=== PATIENT | female | born 1990 | race American Indian/Alaskan Native ===

== ENCOUNTER 2017-05-16 12:14 | Emergency (ER) | payer MEDICAID ==
--- NOTE | 2017-05-16 21:28 | Emergency Department Report ---
Upper Respiratory HPI - HPI Chief Complaint: Upper Respiratory Infection Stated Complaint: FLU LIKE SYMPTOMS Time Seen by Provider: 05/16/17 21:08 Duration: 2 Days URI Symptoms: Rhinorrhea: Yes, Sore Throat: Yes, Ear Pain: Yes, Cough: Yes, Shortness of Breath: No, Sick Contacts: Yes, Unable to Take Fluids: No, Urine Output Abnormal: No, Listless Behavior: No - Home Meds and Allergies Home Medications: Previous Rx's Medication Instructions Recorded Last Taken Type Azithromycin [Zithromax Z-MANAN] 250 mg PO DAILY #6 tab 05/16/17 Unknown Rx Codeine Phosphate/Guaifenesin 5 ml PO TID PRN #120 ml 05/16/17 Unknown Rx [Guaifenesin-Codeine Syrup] Ibuprofen 800 mg PO TID PRN #30 tablet 05/16/17 Unknown Rx predniSONE [Deltasone] 40 mg PO QDAY #10 tab 05/16/17 Unknown Rx Allergies/Adverse Reactions: Allergies Allergy/AdvReac Type Severity Reaction Status Date / Time latex Allergy Rash Verified 05/16/17 13:12 ED Review of Systems ROS: Stated complaint: FLU LIKE SYMPTOMS Other details as noted in HPI Constitutional: chills, fever ENT: ear pain, throat pain, congestion Respiratory: cough, wheezing Cardiovascular: denies: chest pain, palpitations Endocrine: no symptoms reported Gastrointestinal: denies: abdominal pain, nausea, diarrhea Genitourinary: denies: urgency, dysuria, discharge Musculoskeletal: denies: back pain, joint swelling, arthralgia Skin: denies: rash, lesions Neurological: denies: headache, weakness, paresthesias Psychiatric: denies: anxiety, depression Hematological/Lymphatic: denies: easy bleeding, easy bruising ED Past Medical Hx - Past Medical History Hx Psychiatric Treatment: Yes (bipolar) Hx Asthma: Yes - Surgical History Additional Surgical History: tonsillectomy/adnoid removal 2005. tubal ligation 2016. breast reduction 01/2017 - Social History Smoking Status: Never Smoker Substance Use Type: Alcohol - Medications Home Medications: Home Medications Medication Instructions Recorded Confirmed Last Taken Type Azithromycin [Zithromax Z-MANAN] 250 mg PO DAILY #6 tab 05/16/17 Unknown Rx Codeine Phosphate/Guaifenesin 5 ml PO TID PRN #120 ml 05/16/17 Unknown Rx [Guaifenesin-Codeine Syrup] Ibuprofen 800 mg PO TID PRN #30 tablet 05/16/17 Unknown Rx predniSONE [Deltasone] 40 mg PO QDAY #10 tab 05/16/17 Unknown Rx ED Bronchiolitis Physical Exam - Exam General: Vital signs noted. No distress. Alert and acting appropriately. HEENT: Yes Pharyngeal Erythema, Yes Rhinorrhea, No Conjuctival Injection, No Dry Mucous Membranes Ear: Both TM Erythema, Neither TM Bulge, Neither EAC Discharge Neck: No Adenopathy, No Rigidity Lungs: Yes Clear Lung Sounds, Yes Good Air Exchange, Yes Cough, No Wheezes, No Stridor, No Nasal Flaring, No Retractions, No Use of Accessory Muscles Heart: Yes Regular, No Murmur Abdomen: Yes Normal Bowel Sounds, No Tenderness, No Peritoneal Signs Skin: No Rash, No Eczema Neurologic: Alert and oriented, no deficits. Musculoskeletal: Unremarkable. ED Physical Exam - General Limitations: No Limitations General appearance: alert, in no apparent distress - Head Head exam: Present: atraumatic, normocephalic - Eye Eye exam: Present: normal appearance, PERRL, EOMI Pupils: Present: normal accommodation - ENT ENT exam: Present: mucous membranes moist - Expanded ENT Exam Expanded TM/Canal exam: Erythema: Right TM, Left TM, Canal Tenderness: Right TM, Left TM Mouth exam: Absent: trismus Throat exam: Positive: tonsillar erythema. Negative: tonsillomegaly, tonsillar exudate, R peritonsillar mass, L peritonsillar mass - Neck Neck exam: Present: normal inspection, full ROM, lymphadenopathy. Absent: thyromegaly - Respiratory Respiratory exam: Present: normal lung sounds bilaterally. Absent: respiratory distress, wheezes, stridor, chest wall tenderness - Cardiovascular Cardiovascular Exam: Present: regular rate, normal rhythm, normal heart sounds. Absent: systolic murmur, diastolic murmur, rubs, gallop - GI/Abdominal GI/Abdominal exam: Present: soft, normal bowel sounds. Absent: distended, tenderness, guarding, rebound, rigid, organomegaly, mass, bruit, pulsatile mass , hernia - Rectal Rectal exam: Present: deferred - Extremities Exam Extremities exam: Present: normal inspection, full ROM, normal capillary refill - Back Exam Back exam: Present: normal inspection, full ROM. Absent: CVA tenderness (R), CVA tenderness (L) - Neurological Exam Neurological exam: Present: alert, oriented X3, normal gait, reflexes normal - Psychiatric Psychiatric exam: Present: normal affect, normal mood - Skin Skin exam: Present: warm, dry, intact, normal color. Absent: rash ED Course Vital Signs 05/16/17 13:12 Temperature 98.3 F Pulse Rate 76 Respiratory 20 Rate Blood Pressure 119/75 Blood Pressure 119/75 [Right] O2 Sat by Pulse 100 Oximetry ED Medical Decision Making - Medical Decision Making This is a 27-year-old female with a history of asthma and bronchitis patient presents with flulike symptoms cough wheezing nocturnal fever 2 days patient states temp MAXIMUM TEMPERATURE 102 patient denies shortness of breath no dizziness no lightheadedness or nausea vomiting last by mouth intake 1 hour ago patient tolerating by mouth hydration without issues exam patient appears well and nontoxic bilateral TM erythema and pain with movement nose mildly block boggy clear postnasal drip no polyps or obstruction pharynx moderate erythema no exudate no lesions patient is post-tonsillectomy there is no stridor no cervical limits also clear bilateral dystonic no wheezing plan treatment for bronchitis refill albuterol and azithromycin when necessary fever Cheratussin when necessary cough patient will follow with PCP in 2-3 days patient verbalizes understanding and agreement with discharge plan will be discharged home in stable condition at this time Critical care attestation.: If time is entered above; I have spent that time in minutes in the direct care of this critically ill patient, excluding procedure time. ED Disposition Clinical Impression: Bronchitis Disposition: DC-01 TO HOME OR SELFCARE Is pt being admited?: No Does the pt Need Aspirin: No Condition: Good Instructions: Chronic Bronchitis (ED) Prescriptions: Azithromycin [Zithromax Z-MANAN] 250 mg PO DAILY #6 tab Codeine Phosphate/Guaifenesin [Guaifenesin-Codeine Syrup] 5 ml PO TID PRN #120 ml PRN Reason: Cough Ibuprofen 800 mg PO TID PRN #30 tablet PRN Reason: pain fever predniSONE [Deltasone] 40 mg PO QDAY #10 tab Referrals: PRIMARY CARE, [Primary Care Provider] - 3-5 Days Forms: Work/School Release Form(ED) Time of Disposition: 21:31
[2017-05-17 02:23] VITALS: BP 116/79
== END 2017-05-16 21:58 | disposition home or self-care (01) ==
LOC: ED 12:14
DX: J40 Bronchitis, not specified as acute or chronic (principal); Z91.040 Latex allergy status
CPT/HCPCS: 99282

== ENCOUNTER 2017-11-10 07:25 | Emergency (ER) | payer MEDICAID ==
[2017-11-10] MEDS ORDERED: DECADRON IM ONE (09:05)
--- NOTE | 2017-11-10 09:07 | Emergency Department Report ---
ED Allergic Reaction HPI - General Chief complaint: Allergic Reaction Stated complaint: ALLERGIC REACTION Time Seen by Provider: 11/10/17 08:03 Source: patient Mode of arrival: Ambulatory Limitations: No Limitations - History of Present Illness Initial Comments: This is a 27-year-old -German female who presents with hives to bilateral upper extremity and buttock from unknown source. Patient states she woke up around 0300 this morning with periodic rash on left forearm. Patient states she took Benadryl and went back to sleep. When she woke up she noticed hives to the face and buttocks. Her son sleeps in the same bed with her and he did not have signs of rash. She checked her bed and didn't see signs of bed bug. Patient denies recent change in soaps or detergents. Patient states he could not come from food because she ate several hours prior to going to sleep. Denies difficulty swallowing, sore throat, drooling, fever, palpitations or chest pain. MD Complaint: allergic reaction -: This morning Exposure: unknown Symptoms: rash, itching. denies: facial swelling, lip swelling, difficulty swallowing, difficulty breathing, orolingual swelling, hoarseness, syncopy, dizziness, nausea, vomiting, abdominal pain Severity: mild Treatment Prior to Arrival: benadryl Previous Allergy History: none - Related Data Previous Rx's Medication Instructions Recorded Last Taken Type Azithromycin [Zithromax Z-MANAN] 250 mg PO DAILY #6 tab 05/16/17 Unknown Rx Codeine Phosphate/Guaifenesin 5 ml PO TID PRN #120 ml 05/16/17 Unknown Rx [Guaifenesin-Codeine Syrup] Ibuprofen 800 mg PO TID PRN #30 tablet 05/16/17 Unknown Rx predniSONE [Deltasone] 40 mg PO QDAY #10 tab 05/16/17 Unknown Rx hydrOXYzine PAMOATE [Vistaril] 25 mg PO Q6HR PRN #12 capsule 11/10/17 Unknown Rx methylPREDNISolone [Medrol] 4 mg PO DAILY #1 tab.ds.pk 11/10/17 Unknown Rx Allergies Allergy/AdvReac Type Severity Reaction Status Date / Time latex Allergy Rash Verified 05/16/17 13:12 ED Review of Systems ROS: Stated complaint: ALLERGIC REACTION Other details as noted in HPI Constitutional: denies: chills, fever ENT: denies: ear pain, throat pain, dental pain, hearing loss, epistaxis, congestion Respiratory: denies: cough, shortness of breath, wheezing Cardiovascular: denies: chest pain, palpitations Gastrointestinal: denies: abdominal pain, nausea, vomiting, diarrhea Skin: lesions (hives to her face, bilateral lower extremity, and buttocks). denies: rash Neurological: denies: headache, weakness, numbness, paresthesias Psychiatric: denies: anxiety, depression ED Past Medical Hx - Past Medical History Previous Medical History?: Yes Hx Psychiatric Treatment: Yes (bipolar) Hx Asthma: Yes - Surgical History Past Surgical History?: Yes Additional Surgical History: tonsillectomy/adnoid removal 2005. tubal ligation 2016. breast reduction 01/2017 - Social History Smoking Status: Never Smoker Substance Use Type: Alcohol - Medications Home Medications: Home Medications Medication Instructions Recorded Confirmed Last Taken Type Azithromycin [Zithromax Z-MANAN] 250 mg PO DAILY #6 tab 05/16/17 Unknown Rx Codeine Phosphate/Guaifenesin 5 ml PO TID PRN #120 ml 05/16/17 Unknown Rx [Guaifenesin-Codeine Syrup] Ibuprofen 800 mg PO TID PRN #30 tablet 05/16/17 Unknown Rx predniSONE [Deltasone] 40 mg PO QDAY #10 tab 05/16/17 Unknown Rx hydrOXYzine PAMOATE [Vistaril] 25 mg PO Q6HR PRN #12 capsule 11/10/17 Unknown Rx methylPREDNISolone [Medrol] 4 mg PO DAILY #1 tab.ds.pk 11/10/17 Unknown Rx ED Physical Exam - General Limitations: No Limitations General appearance: alert, in no apparent distress - ENT ENT exam: Present: mucous membranes moist - Respiratory Respiratory exam: Present: normal lung sounds bilaterally. Absent: respiratory distress - Cardiovascular Cardiovascular Exam: Present: regular rate, normal rhythm. Absent: systolic murmur, diastolic murmur, rubs, gallop - GI/Abdominal GI/Abdominal exam: Present: soft, normal bowel sounds. Absent: organomegaly, mass - Neurological Exam Neurological exam: Present: alert, oriented X3, normal gait - Psychiatric Psychiatric exam: Present: normal affect, normal mood - Skin Skin exam: Present: warm, dry, intact, normal color, rash (erythematous maculopapular rash to buttocks and left forearm, blanchable) ED Course Vital Signs 11/10/17 07:45 Temperature 97.9 F Pulse Rate 70 Respiratory 16 Rate Blood Pressure 125/82 O2 Sat by Pulse 99 Oximetry ED Medical Decision Making - Medical Decision Making This is a 27 y.o. female presents with generalized rash of unknown cause that started around 0300 today. Patient was examined by me. Vitals are normal and patient is in no acute distress. No labs or radiograph obtained. Physical findings susceptible of allergic contact dermatitis. Patient given dexamethasone 8 mg IM. Start medrol dose taper and Vistaril. Plan discussed with patient to discharge home and treat outpatient. Patient discharged home in stable condition. Follow up with PCP in 2-3 days. Critical care attestation.: If time is entered above; I have spent that time in minutes in the direct care of this critically ill patient, excluding procedure time. ED Disposition Clinical Impression: Allergic contact dermatitis Qualifiers: Contact dermatitis trigger: unspecified trigger Qualified Code(s): L23.9 - Allergic contact dermatitis, unspecified cause Disposition: TO HOME OR SELFCARE Is pt being admited?: No Does the pt Need Aspirin: No Condition: Stable Instructions: Contact Dermatitis (ED) Additional Instructions: Complete steroid dose pack as prescribed. Take vistaril for itching discomfort. Follow up with primary care provider in 2-3 days. Prescriptions: hydrOXYzine PAMOATE [Vistaril] 25 mg PO Q6HR PRN #12 capsule PRN Reason: Itching methylPREDNISolone [Medrol] 4 mg PO DAILY #1 tab.ds.pk Referrals: [facility] [Outside] - 3-5 Days [facility] [Outside] - 3-5 Days [facility] [Outside] - 3-5 Days Time of Disposition: 09:45 Print Language: CITIZEN OF [place]
[2017-11-10 09:57] VITALS: BP 121/78
== END 2017-11-10 09:56 | disposition home or self-care (01) ==
LOC: ED 07:25
DX: L23.9 Allergic contact dermatitis, unspecified cause (principal); J45.909 Unspecified asthma, uncomplicated; Z91.040 Latex allergy status
CPT/HCPCS: 96372; 99282; J1100

== ENCOUNTER 2018-05-29 09:33 | Day surgery (SDC) | payer MEDICAID ==
[2018-05-29] MEDS ORDERED: LACTATED RINGERS 1,000 ML IV SCH ×2 (09:53→13:00)
[2018-05-29] MEDS ORDERED: ANCEF/STERILE WATER 2 GM/20 ML 2 GM/20 ML SYRINGE IV NR (10:00)
[2018-05-29] MEDS ORDERED: ROBINUL ONE ×2 (10:04→13:29)
[2018-05-29] MEDS ORDERED: QUELICIN ONE (10:04)
[2018-05-29] MEDS ORDERED: ZEMURON IV ONE (10:04)
[2018-05-29] MEDS ORDERED: BLOXIVERZ ONE (10:04)
[2018-05-29] MEDS ORDERED: DECADRON ONE (10:04)
[2018-05-29] MEDS ORDERED: XYLOCAINE MPF 2% ONE (10:04)
[2018-05-29] MEDS ORDERED: TORADOL ONE (10:04)
[2018-05-29] MEDS ORDERED: SUBLIMAZE ONE (10:04)
[2018-05-29] MEDS ORDERED: DIPRIVAN 10 MG/ML IV ONE (10:04)
[2018-05-29 10:33] LABS: Hemoglobin 13.2 gm/dl (10.1-14.3); Mean Corpuscular HGB Conc 34 % (30-34); Mean Corpuscular Volume 92 fl (79-97); Platelet Count 261 K/mm3 (140-440); Red Blood Count 4.24 M/mm3 (3.65-5.03); Red Cell Distribution Width 14.2 % (13.2-15.2)
[2018-05-29 10:52] LABS: Alanine Aminotransferase 20 units/L (7-56); Albumin 3.3 g/dL (3.9-5); BUN/Creatinine Ratio 12; Blood Urea Nitrogen 7 mg/dL (7-17); Calcium 7.7 mg/dL (8.4-10.2); Hemolysis Index 27
[2018-05-29] MEDS ORDERED: MARCAINE 0.5% INFILTRATI ONE ×2 (10:56→12:25)
[2018-05-29] MEDS ORDERED: VERSED ONE (11:53)
[2018-05-29] MEDS ORDERED: DILAUDID IV PRN (12:31)
[2018-05-29] MEDS ORDERED: SUBLIMAZE IV PRN (12:31)
[2018-05-29] MEDS ORDERED: ZOFRAN IV PRN (12:32)
--- NOTE | 2018-05-29 14:42 | Operative Report ---
Operative Report Operative Report: Preop diagnosis 1. Chronic pelvic pain 2. Heavy menses Postop diagnosis 1. Chronic pelvic pain 2. Heavy menses 3. 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 Diagnostic laparoscopy Surgeon Dr. Kaela Aburto Findings 1. 8-10 week anteverted uterus 2. Normal appearing bilateral ovaries (4-4.5cm bilaterally) 3. Fallopian tubes s/p tubal ligation changes 4. Normal bilateral fimbria 5. No pelvic adhesions 6. Small amount of free serous pelvic fluid Specimen: 1. None Anesthesia: General I/O EBL: <25ml Urine: 1200ml clear Complications: none Disposition: Patient to PACU in stable condition INDICATION: 28yo s/p bilateral tubal ligation and endometrial ablation presents for diagnostic laparoscopy secondary to chronic pelvic pain. Risks including but not limited to bleeding, infection, injury to vessels, bladder and/or bowel, possible normal findings were discussed. Benefits and alternatives were discussed and informed consent signed. PROCEDURE: The patient was taken to OR 12 in stable condition. She was placed on the bed in the supine position and adequate anesthesia was achieved. She wore SCDs for DVT prophylaxis. She was prepped and draped in the sterile fashion and a time out was done. She was re-positioned in the dorsal lithotomy position with Angel stirrups. A Folecy catheter was placed to drain the bladder. A sterile speculum was placed per vagina and a single toothed tenaculum was placed on the anterior lip of the cervix. A sound and Cantu dilator were unable to cannulate the uterine cavity. Therefore a EEA sizer was placed per vagina to aid in uterine manipulation. Attention was then turned to the abdomen where a 0.5cm infraumbilical incision was made. A 5mm Applied Fios trocar was used to insufflate the abdomen with CO2 gas. The opening pressure was noted to be 5mm Hg. An intra-abdominal survey noted no pelvic adhesions. A RLQ 5mm incision was made and 5mm trocar placed under direct visualization. An intra-abdominal survey noted grossly normal findings including no hepatic adhesions and normal appearing appendix. The fallopian tube was noted to have post-tubal ligation findings of salpingectomy at the isthmus bilaterally. The tubes, ovaries and uterus were grossly normal appearing. The RLQ trocar was removed under direct visualization. The abdomen was freed of gas and the infraumbilical trocar was removed. 0.5% Marcaine was injected into the abdominal incisions. The skin of both incisions was closed with 4-0 Monocryl. Attention was then turned to the perineum and the EEA sizer and Weston catheter were removed. The procedure was ended. All counts were correct x 2. The patient was awakened from anesthesia in stable condition and transported to the PACU. I was present and scrubbed for the entire procedure.
--- NOTE | 2018-05-29 15:16 | Anesthesia Day of Surgery ---
Anesthesia Day of Surgery - Day of Surgery Patient Examined: Yes Patient H&P Reviewed: Yes Patient is NPO: Yes Beta Blockers: No Cardiac Clearance: No Pulmonary Clearance: No
--- NOTE | 2018-05-29 15:17 | Anesthesia Consultation ---
Anesthesia Consult and Med Hx Date of service: 05/29/18 - Airway Anesthetic Teeth Evaluation: Good ROM Head & Neck: Adequate Mental/Hyoid Distance: Adequate Mallampati Class: Class III Intubation Access Assessment: Probably Good - Pulmonary Exam CTA: Yes - Pre-Operative Health Status ASA Pre-Surgery Classification: ASA3 Proposed Anesthetic Plan: MAC - Pulmonary Hx Asthma: Yes (Last treated 6 mos ago) - Central Nervous System Hx Seizures: Yes Hx Psychiatric Problems: No - Endocrine Hx Non-Insulin Dependent Diabetes: Yes - Other Systems Hx Alcohol Use: Yes (Occas) Hx Cancer: No Hx Obesity: Yes
[2018-05-29 16:10] VITALS: BP 117/77
== END 2018-05-29 15:45 | disposition home or self-care (01) ==
LOC: OR 09:33
PROVIDERS: ATTEND Obstetrics & Gynecology
DX: R10.2 Pelvic and perineal pain (principal); G89.29 Other chronic pain; N92.0 Excessive and frequent menstruation with regular cycle; J45.909 Unspecified asthma, uncomplicated; E11.9 Type 2 diabetes mellitus without complications; E66.9 Obesity, unspecified; Z68.37 Body mass index [BMI] 37.0-37.9, adult; Z91.040 Latex allergy status; Z79.899 Other long term (current) drug therapy; Z79.84 Long term (current) use of oral hypoglycemic drugs; Z98.51 Tubal ligation status; Z72.89 Other problems related to lifestyle; Z98.890 Other specified postprocedural states
CPT/HCPCS: 36415; 49320; 80053; 81025; 82962; 85027; J0330; J0690; J1100; J1170; J1885; J2250; J2704; J3010; J7120; J2710

== ENCOUNTER 2018-12-01 09:54 | Observation (INO) | payer MEDICAID ==
[2018-11-27 09:46] LABS: Basophils % (Auto) 0.4 % (0.0-1.8); Eosinophils # (Auto) 0.1 K/mm3 (0.0-0.4); Eosinophils % (Auto) 1.4 % (0.0-4.3); Hematocrit 38.8 % (30.3-42.9); Hemoglobin 13.1 gm/dl (10.1-14.3); Lymphocytes # (Auto) 2.5 K/mm3 (1.2-5.4); Lymphocytes % (Auto) 38.8 % (13.4-35.0); Mean Corpuscular HGB Conc 34 % (30-34); Mean Corpuscular Volume 93 fl (79-97); Monocytes # (Auto) 0.2 K/mm3 (0.0-0.8); Monocytes % (Auto) 2.9 % (0.0-7.3); Platelet Count 220 K/mm3 (140-440); Red Blood Count 4.18 M/mm3 (3.65-5.03)
[2018-11-27 10:00] LABS: BUN/Creatinine Ratio 13; Blood Urea Nitrogen 8 mg/dL (7-17); Calcium 8.9 mg/dL (8.4-10.2); Hemolysis Index 6
--- NOTE | 2018-11-27 11:12 | Anesthesia Consultation ---
Anesthesia Consult and Med Hx Date of service: 11/27/18 - Airway Anesthetic Teeth Evaluation: Good ROM Head & Neck: Adequate Mental/Hyoid Distance: Adequate Mallampati Class: Class II Intubation Access Assessment: Probably Good - Pulmonary Exam CTA: Yes - Cardiac Exam Cardiac Exam: RRR - Pre-Operative Health Status ASA Pre-Surgery Classification: ASA2 Proposed Anesthetic Plan: General - Pulmonary Hx Smoking: No Hx Asthma: Yes (prn albuterol (last use several months ago)) Hx Sleep Apnea: No - Cardiovascular System Hx Hypertension: No Hx Heart Attack/AMI: No - Central Nervous System Hx Seizures: Yes (during 2015, none since. No anti-seizure meds.) CVA: No - Gastrointestinal Hx Gastroesophageal Reflux Disease: No - Endocrine Hx Renal Disease: No Hx Liver Disease: No Hx Non-Insulin Dependent Diabetes: Yes Hx Thyroid Disease: No - Hematic Hx Anemia: No - Other Systems Hx Alcohol Use: Yes (Occas) Hx Obesity: Yes (BMI 37) - Additional Comments Anesthesia Medical History Comments: No hx anesthetic complications. Medical clearance on chart.
[~2018-12-01 09:54] MED LIST: NEURONTIN PO NR; VERSED IV NR
[2018-12-01] MEDS ORDERED: ZOFRAN IV PRN ×2 (10:33→18:23)
[2018-12-01] MEDS ORDERED: DILAUDID IV PRN (10:33)
--- NOTE | 2018-12-01 10:33 | Anesthesia Day of Surgery ---
Anesthesia Day of Surgery - Day of Surgery Patient Examined: Yes Patient H&P Reviewed: Yes Patient is NPO: Yes
[2018-12-01] MEDS: LACTATED RINGERS 1,000 ML IV SCH ×2 (10:45→21:33)
[2018-12-01] MEDS ORDERED: Vasostrict ONE ×2 (13:51→15:16)
[2018-12-01] MEDS ORDERED: MARCAINE-EPI 0.25%-1:200,000 INFILTRATI ONE (13:51)
[2018-12-01] MEDS ORDERED: VERSED ONE (14:42)
[2018-12-01] MEDS ORDERED: SUBLIMAZE ONE (14:42)
[2018-12-01] MEDS ORDERED: DIPRIVAN 10 MG/ML IV ONE (14:42)
[2018-12-01] MEDS ORDERED: XYLOCAINE MPF 2% ONE (14:45)
[2018-12-01] MEDS ORDERED: ANCEF/STERILE WATER 2 GM/20 ML IV NR (15:00)
[2018-12-01] MEDS ORDERED: LACTATED RINGERS 1,000 ML ONE ×2 (15:09→17:52)
[2018-12-01] MEDS ORDERED: ZEMURON IV ONE (15:30)
[2018-12-01] MEDS ORDERED: NACL 0.9% IR ONE (15:36)
[2018-12-01] MEDS ORDERED: Vasostrict IM ONE (15:36)
[2018-12-01] MEDS ORDERED: ZOFRAN ONE (15:41)
[2018-12-01] MEDS ORDERED: BLOXIVERZ ONE ×2 (15:41→17:49)
[2018-12-01] MEDS ORDERED: ROBINUL ONE (15:41)
[2018-12-01] MEDS ORDERED: REGLAN ONE (15:41)
[2018-12-01] MEDS ORDERED: DECADRON ONE (15:41)
[2018-12-01] MEDS ORDERED: TORADOL ONE (15:41)
[2018-12-01] MEDS ORDERED: DULCOLAX PR PRN (18:23)
[2018-12-01] MEDS ORDERED: NARCAN 0.4 MG/1 ML IV PRN (18:23)
[2018-12-01] MEDS ORDERED: REGLAN IV PRN (18:23)
[2018-12-01] MEDS ORDERED: PHENERGAN PR PRN (18:23)
[2018-12-01] MEDS ORDERED: MORPHINE IV PRN (18:23)
[2018-12-01] MEDS ORDERED: TYLENOL PO PRN (18:23)
[2018-12-01] MEDS ORDERED: PERCOCET 5/325 PO PRN (18:23)
[2018-12-01] MEDS ORDERED: MILK OF MAGNESIA PO PRN (18:23)
--- NOTE | 2018-12-01 18:36 | Operative Report ---
Operative Report Operative Report: Preoperative diagnosis: 1. Dysfunctional uterine bleeding. 2. Left ovarian hemorrhagic cyst. Postoperative diagnosis: same. Procedure: 1. Vaginal hysterectomy. 2. Left ovarian cystectomy. Surgeon: DR. moy Clinical Audiologist: Dr. Alexis Flanagan. Anesthesia: general. EBL: 400 cc Urine: 325 cc clear IVF: 1500 cc of RL Anesthesia: General Procedure details: The risks, benefits, and alternatives of the procedure were discussed in detail with the patient which included but not limited to the risk of infection, hemorrhage requiring blood transfusion, injury to the bowel or bladder and blood vessels, and the risk of having the procedure converted to an exploratory laparotomy, risks of having one or both ovaries removed if any disease is found intraoperatively. The patient expressed understanding, her questions were answered, and she gave informed consent. The patient was taken to the operating room with an IV fluid infusing Ringer's lactate. In the operating room, she was placed in a dorsal supine position and given general anesthesia. She was then placed on the stirrups in a dorsal lithotomy position. The perineum vagina and cervix were washed and she was prepared and draped in usual sterile fashion. Weston catheter was placed. Examination under anesthesia revealed normal perineum, vagina and cervix, no gross lesions or bleeding. The uterus was 6-8 weeks size, anteverted, and mobile. The adnexa were nonpalpable. The labia were stitched open to the inguinal area on both sides. A heavy weighted vaginal retractor was placed on the posterior vaginal wall. The cervix was grasped with Tran tenaculum at its anterior and posterior lips. It was pulled to a complete view. A transverse incision was made with the scalpel in the mucosa of the vagina anteriorly about 2 cm above the portio vaginalis and caudad to the bladder attachment. This incision was carried circularly and extended posteriorly at the level of the posterior fornix. The bladder was pushed upwards anteriorly toward the vesico-uterine fold and posteriorly the mucosa was pushed upwards by blunt dissection. The Pouch of Sean was entered sharply using Metzenbaum scissors. A stitch of 0 Vicryl sutures was placed on the posterior peritoneum. The uterosacral ligaments were clamped bilaterally, cut and suture ligated using 0 Vicryl sutures. The broad ligaments were then clamped at their base on both sides, cut and suture ligated using 0 Vicryl sutures. The uterine vessels were clamped bilaterally cut and suture ligated using 0 Vicryl sutures. The uterine fundus was delivered from the posterior fornix incision and the anterior cul-de-sac was entered sharply using Metzenbaum scissors. The utero-ovarian, round and broad ligaments were clamped at the upper portion close to the uterine fundus, cut, and suture ligated using 0 Vicryl sutures. The specimen which consisted of the uterus and cervix was collected for pathology. The adnexae on both sides were inspected. A left hemorrhagic ovarian cyst was seen. A cystectomy was performed and the ovary was repaired using 2-0 Vicryl sutures with good hemostasis. After hemostasis was confirmed, the peritoneum was then closed using a pursestring suture of 0 Vicryl while exteriorized exteriorizing the stumps. The stumps were then tied in the midline. The vaginal vault was closed in a continuous fashion using 0 Vicryl sutures. The instruments were removed from the vagina. Vaginal packing was placed. The counts of laps, needles, sponges and instruments were correct 2. The patient tolerated the procedure well. She was awakened from the anesthesia and taken to the recovery room in a stable condition.
[2018-12-01] MEDS: MORPHINE IV PRN (20:31)
[2018-12-01] MEDS: TORADOL IV SCH (22:59)
[2018-12-02] MEDS: MORPHINE IV PRN (01:52)
[2018-12-02] MEDS: TORADOL IV SCH (05:00)
[2018-12-02 05:41] LABS: Hematocrit 35.6 % (30.3-42.9)
[2018-12-02] MEDS: LACTATED RINGERS 1,000 ML IV SCH (06:57)
[2018-12-02] MEDS ORDERED: HumuLIN R SUB-Q SCH (07:30)
--- NOTE | 2018-12-02 09:47 | Progress Note ---
Assessment and Plan - Patient Problems (1) Dysfunctional uterine bleeding Current Visit: Yes Status: Acute (2) S/P vaginal hysterectomy Current Visit: Yes Status: Acute Plan to address problem: Vaginal pack removed. No active bleeding. Continue routine post op care. OOB to ambulate. Patient may be discharged home today. (3) Left ovarian cyst Current Visit: Yes Status: Acute (4) Diabetes Current Visit: Yes Status: Acute Qualifiers: Diabetes mellitus type: type 2 Plan to address problem: Continue FS with insulin sliding scale. Subjective - Subjective Date of service: 12/02/18 Principal diagnosis: S/P vaginal hysterectomy, left ovarian cystectomy Interval history: Patient is a 28 year old who is S/P vaginal hysterectomy and left ovarian cystectomy, POD#1. She has not passed gas yet. She denies any complaint. Objective - Vital Signs Latest vital signs: Vital Signs Temp Pulse Resp BP BP Pulse Ox 12/02/18 08:54 98.2 F 67 20 113/67 12/02/18 05:00 20 12/02/18 04:33 98.2 F 85 20 114/71 98 12/02/18 03:54 18 12/02/18 01:52 20 12/01/18 23:22 98.1 F 87 20 126/81 99 12/01/18 22:59 20 12/01/18 21:01 20 12/01/18 20:31 20 12/01/18 19:36 93 H 98 12/01/18 19:35 96 12/01/18 19:33 98.3 F 99 H 20 126/77 96 12/01/18 19:15 89 16 119/73 98 12/01/18 19:00 87 18 123/72 99 12/01/18 18:45 101 H 20 125/63 98 12/01/18 18:40 91 H 18 123/72 98 12/01/18 18:35 99 H 14 121/73 98 12/01/18 18:30 89 21 115/70 98 12/01/18 18:24 98.6 F 101 H 14 117/69 97 12/01/18 10:45 18 12/01/18 10:30 97.8 F 59 L 20 103/59 98 Intake and Output 12/01/18 12/02/18 12/02/18 23:59 07:59 15:59 Intake Total 1000 1060 240 Output Total 300 2600 300 Balance 700 -1540 -60 Intake: IV 1000 940 Lactated Ringers 1,000 ml 1000 940 @ 100 mls/hr IV DIRECT RENATA Rx#:[id number] Oral 120 240 Output: Urine 300 2600 300 Indwelling Catheter 200 2400 Void 200 300 Other: Total, Intake Amount 120 240 Total, Output Amount 200 200 300 Voiding Method Indwelling Catheter Indwelling Catheter # Voids Void 1 2 - Exam Cardiovascular: Present: Normal S1, Normal S2 Lungs: Present: Clear to auscultation Vulva: both: normal Deep Tendon Reflex Grade: Normal +2 - Labs Labs: Abnormal lab results 12/02/18 Range/Units 06:03 POC Glucose 141 H (70-105)
--- NOTE | 2018-12-02 09:55 | Discharge Summary ---
Providers - Providers Date of Admission: 12/01/18 18:23 Date of discharge: 12/02/18 Attending physician: WILDER BLEVINS MD Primary care physician: MANOHAR GARCIA Hospitalization Reason for admission: other (vaginal hysterectomy, left ovarian cystectomy.) Procedure: other (Vaginal hysterectomy, left ovarian cystectomy.) Hospital course: Patient was admitted for vaginal hysterectomy and left ovarian cystectomy. She is post op day#1. She deneis any complaint. She is taking percocet for pain control. Vaginal pack removed. No active bleeding. Continue routine post op care. OOB to ambulate. Patient may be discharged home today. She will follow up in one week in the office. Rx for percocet, motrin, flagyl given. Condition at discharge: Stable Disposition: - TO HOME OR SELFCARE - Discharge Diagnoses (1) Dysfunctional uterine bleeding Status: Acute (2) S/P vaginal hysterectomy Status: Acute (3) Left ovarian cyst Status: Acute (4) Diabetes Status: Acute Qualifiers: Diabetes mellitus type: type 2 Plan - Provider Discharge Summary Additional instructions: [] Smoking cessation referral if applicable(refer to patient education folder for contact #) [] Refer to [facility] Booklet Call your doctor immediately for: * Fever > 100.5 * Heavy vaginal bleeding ( >1 pad per hour) * Severe persistent headache * Shortness of breath * Reddened, hot, painful area to leg or breast * Drainage or odor from incision. * Keep incision clean and dry at all times and follow doctor's instructions regarding bathing/showering - Follow up plan Follow up: MANOHAR GARCIA MD [Primary Care Provider] - 7 Days
[2018-12-02] MEDS ORDERED: PERCOCET 5/325 PO PRN (10:02)
[2018-12-02] MEDS ORDERED: ZOFRAN ODT PO PRN (10:02)
[2018-12-02] MEDS ORDERED: PEPCID PO SCH (11:00)
[2018-12-02 13:19] VITALS: BP 91/46
--- NOTE | 2018-12-02 19:02 | Post Anesthesia Evaluation ---
- Post Anesthesia Evaluation Patient Participated: Yes Airway Patent: Yes Stable Respiratory Function: Yes Nausea/Vomiting: No Temp > 96.8F: Yes Pain Manageable: Yes Adequeate Hydration: Yes Anesthesia Complications: No Block Receding Appropriately: Not Applicable Patient on Ventilator: No
== END 2018-12-02 15:45 | disposition home or self-care (01) ==
LOC: OR 09:54 → OB 18:23
PROVIDERS: ADMIT Obstetrics & Gynecology; ATTEND Obstetrics & Gynecology
DX: N83.202 Unspecified ovarian cyst, left side (principal); N93.8 Other specified abnormal uterine and vaginal bleeding; E11.9 Type 2 diabetes mellitus without complications
CPT/HCPCS: 36415; 58260; 80048; 82962; 84703; 85014; 85018; 85025; 86706; 86803; 86850; 86900; 86901; 87806; 88307; 96372; 96374; 96375; 96376; G0378; J0690; J1100; J1170; J1885; J2250; J2270; J2405; J2704; J2710; J2765; J3010; J7120

== ENCOUNTER 2019-11-29 20:54 | Emergency (ER) | payer MEDICAID ==
[2019-11-29 21:20] VITALS: BP 113/57
[2019-11-30 00:28] LABS: Bilirubin,Urine NEG (Negative); Blood,Urine NEG (Negative); Color,Urine Yellow (Yellow); Mucus,Urine 3+ /HPF; Protein,Urine <15 mg/dL mg/dL (Negative); Urobilinogen,Urine < 2.0 mg/dL (<2.0)
[2019-11-30 00:33] LABS: HCG Qualitative,Urine Negative (Negative)
[2019-11-30] MEDS ORDERED: IBUPROFEN 600 MG TAB PO ONE ×2 (00:44→00:47)
[2019-11-30] MEDS ORDERED: HYDROcodone/ACETAMINOPHEN 5-325 MG TAB PO ONE (00:44)
[2019-11-30] MEDS ORDERED: ONDANSETRON 4 MG ODT TAB PO ONE (00:46)
[2019-11-30] MEDS ORDERED: ONDANSETRON 4 MG ODT TAB ONE (00:46)
[2019-11-30] MEDS ORDERED: HYDROcodone/ACETAMINOPHEN 5-325 MG TAB ONE (00:47)
--- NOTE | 2019-11-30 00:48 | Emergency Department Report ---
ED Abdominal Pain HPI - General Chief Complaint: Abdominal Pain Stated Complaint: FLANK PAIN/KIDNEY STONE Time Seen by Provider: 11/29/19 22:20 Source: patient Mode of arrival: Ambulatory Limitations: No Limitations - History of Present Illness Initial Comments: 29-year-old -Australian female presents emergency department planing of 2- day history of suprapubic pelvic pressure that radiates to flank suggestive of a kidney stone that she has had in the past reports no fever, chills, sweats no nausea, no vomiting no chest pain or palpitations. Pain is episodic and seems to stem around some form of urination there is no direct trauma no. No palliative factors noted. MD Complaint: abdominal pain, flank pain Severity: moderate Quality: aching, dull Consistency: intermittent Associated Symptoms: denies: constipation, dysuria, hematemesis, melena, hematuria - Related Data Home Medications Medication Instructions Recorded Confirmed Last Taken Albuterol Sulfate [Ventolin HFA] 2 puff IH Q4H PRN 05/20/18 12/01/18 05/13/18 Linagliptin [Tradjenta] 5 mg PO QDAY 11/27/18 12/01/18 11/30/18 09:00 Previous Rx's Medication Instructions Recorded Last Taken Type Ibuprofen [Motrin] 800 mg PO Q8HR PRN #30 tablet 12/02/18 Unknown Rx metroNIDAZOLE [Flagyl] 500 mg PO Q12HR 7 Days tab 12/02/18 Unknown Rx oxyCODONE /ACETAMINOPHEN [Percocet 1 tab PO Q6HR #14 tab 12/02/18 Unknown Rx 5/325] Hyoscyamine Subl [Levsin Sl 0.125 0.125 mg SL Q6HR PRN #14 tab 11/30/19 Unknown Rx TAB] Allergies Allergy/AdvReac Type Severity Reaction Status Date / Time latex Allergy HIves, Verified 11/25/18 18:16 itching ED Review of Systems ROS: Stated complaint: FLANK PAIN/KIDNEY STONE Other details as noted in HPI Comment: All other systems reviewed and negative ED Past Medical Hx - Past Medical History Previous Medical History?: Yes Hx Diabetes: Yes Hx Psychiatric Treatment: Yes (bipolar) Hx Asthma: Yes (Last treated 1 mos ago) - Surgical History Past Surgical History?: Yes Hx Breast Surgery: Yes (Reduction) Additional Surgical History: tonsillectomy/adnoid removal 2005. tubal ligation 2017. breast reduction 01/2017 - Social History Smoking Status: Never Smoker - Medications Home Medications: Home Medications Medication Instructions Recorded Confirmed Last Taken Type Albuterol Sulfate [Ventolin HFA] 2 puff IH Q4H PRN 05/20/18 12/01/18 05/13/18 History Linagliptin [Tradjenta] 5 mg PO QDAY 11/27/18 12/01/18 11/30/18 09:00 History Ibuprofen [Motrin] 800 mg PO Q8HR PRN #30 tablet 12/02/18 Unknown Rx metroNIDAZOLE [Flagyl] 500 mg PO Q12HR 7 Days tab 12/02/18 Unknown Rx oxyCODONE /ACETAMINOPHEN [Percocet 1 tab PO Q6HR #14 tab 12/02/18 Unknown Rx 5/325] Hyoscyamine Subl [Levsin Sl 0.125 0.125 mg SL Q6HR PRN #14 tab 11/30/19 Unknown Rx TAB] ED Physical Exam - General Limitations: No Limitations General appearance: alert, in no apparent distress - Head Head exam: Present: atraumatic, normocephalic - Eye Eye exam: Present: normal appearance - ENT ENT exam: Present: normal exam, normal orophraynx, mucous membranes moist - Neck Neck exam: Present: normal inspection - Respiratory Respiratory exam: Present: normal lung sounds bilaterally. Absent: respiratory distress - Cardiovascular Cardiovascular Exam: Present: regular rate, normal rhythm. Absent: systolic murmur, diastolic murmur, rubs, gallop - GI/Abdominal GI/Abdominal exam: Present: soft, normal bowel sounds - Extremities Exam Extremities exam: Present: normal inspection - Back Exam Back exam: Present: normal inspection, CVA tenderness (R), CVA tenderness (L) - Neurological Exam Neurological exam: Present: alert, oriented X3 - Psychiatric Psychiatric exam: Present: normal affect, normal mood - Skin Skin exam: Present: warm, dry, intact, normal color. Absent: rash ED Course Vital Signs 11/29/19 21:16 Temperature 98.2 F Pulse Rate 62 Respiratory 12 Rate Blood Pressure 113/57 O2 Sat by Pulse 98 Oximetry ED Medical Decision Making - Lab Data Lab Results 11/29/19 Range/Units 23:03 Urine Color Yellow (Yellow) Urine Turbidity Clear (Clear) Urine pH 6.0 (5.0-7.0) Ur Specific [place] 1.019 (1.003-1.030) Urine Protein <15 mg/dl (Negative) mg/dL Urine Glucose (UA) Neg (Negative) mg/dL Urine Ketones Neg (Negative) mg/dL Urine Blood Neg (Negative) Urine Nitrite Neg (Negative) Urine Bilirubin Neg (Negative) Urine Urobilinogen < 2.0 (<2.0) mg/dL Ur Leukocyte Esterase Neg (Negative) Urine WBC (Auto) 1.0 (0.0-6.0) /HPF Urine RBC (Auto) 3.0 (0.0-6.0) /HPF U Epithel Cells (Auto) 4.0 (0-13.0) /HPF Urine Mucus 3+ /HPF Urine HCG, Qual Negative (Negative) - Radiology Data Radiology results: [place] [address] Cat Scan Report Signed Patient: DILMA RODRIGUEZ MR#: [id number] : 1990 Acct:[id number] Age/Sex: 29 / F ADM Date: 11/29/19 Loc: ED Attending Dr: Ordering Physician: PARK ROMO Date of Service: 11/30/19 Procedure(s): CT abdomen pelvis wo con Accession Number(s): [id number] cc: PARK ROMO CT ABDOMEN AND PELVIS WITHOUT CONTRAST INDICATION: Right flank pain. History of renal stones. TECHNICAL: Multiple axial CT images of the abdomen and pelvis were acquired without intravenous contrast. Sagittal and coronal reformats were obtained. All CTs at this facility utilize dose reduction techniques including automated exposure control, iterative reconstruction and weight based dosing when appropriate to reduce patient radiation dose to as low as reasonable achievable. COMPARISON: None. FINDINGS: Limited imaging of the bilateral lung bases demonstrates no evidence of acute abnormality. Abdomen: Within the limitations of today's noncontrast study, the liver, spleen, gallbladder, pancreas, bilateral adrenal glands and bilateral kidneys show no evidence of acute abnormality. There is no hydronephrosis or perinephric stranding. No obstructing renal or ureteral stone is identified. The abdominal aorta is normal in caliber. The appendix is visualized and appears normal. Pelvis: There are scattered diverticula of the distal descending colon. The uterus and urinary bladder appear within normal limits. No free pelvic fluid is identified. Bones and Soft Tissues: Evaluation of bony structures demonstrates no evidence of acute bony abnormality. Evaluation of soft tissue structures demonstrates no evidence of acute soft tissue abnormality. IMPRESSION: 1. No CT evidence of acute inflammatory or obstructive process within the abdomen or pelvis. Signer Name: Jennifer Bravo MD Signed: 11/30/2019 2:26 AM Workstation Name: [id number] Transcribed By: EB Dictated By: Jennifer Bravo MD Electronically Authenticated By: Jennifer Bravo MD Signed Date/Time: 11/30/19225 DD/DT: Medical Decision Making This patient presents with abdominal pain of unclear etiology. A CT scan was performed to evaluate for potential causes of the abdominal pain, however, neither the clinical exam nor the CT has identified an emergent etiology for the abdominal pain. Specifically, given the benign exam, the laboratory studies, and unremarkable CT, I have a very low suspicion for appendicitis, ischemic bowel, bowel perforation, or any other life threatening disease. I have discussed with the patient the level of uncertainty with undifferentiated abdominal pain and clearly explained the need to follow-up as noted on the discharge instructions, or return to the Emergency Department immediately if the pain worsens, develops fever, persistent and uncontrollable vomiting, or for any new symptoms or concerns. Critical care attestation.: If time is entered above; I have spent that time in minutes in the direct care of this critically ill patient, excluding procedure time. ED Disposition Clinical Impression: Abdominal pain Disposition: DC-01 TO HOME OR SELFCARE Is pt being admited?: No Does the pt Need Aspirin: No Condition: Stable Instructions: Abdominal Pain (ED) Prescriptions: Hyoscyamine Subl [Levsin Sl 0.125 TAB] 0.125 mg SL Q6HR PRN #14 tab PRN Reason: abdominal pain Referrals: PRIMARY CARE, [Primary Care Provider] - 3-5 Days
--- NOTE | 2019-11-30 02:31 | Cat Scan Report ---
CT ABDOMEN AND PELVIS WITHOUT CONTRAST INDICATION: Right flank pain. History of renal stones. TECHNICAL: Multiple axial CT images of the abdomen and pelvis were acquired without intravenous contr ast. Sagittal and coronal reformats were obtained. All CTs at this facility utilize dose reduction techniques including automated exposure control, iterative reconstruction and weight based dosing whe n appropriate to reduce patient radiation dose to as low as reasonable achievable. COMPARISON: None. FINDINGS: Limited imaging of the bilateral lung bases demonstrates no evidence of acute abnormality. Abdomen: Within the limitations of today's noncontrast study, the liver, spleen, gallbladder, pancrea s, bilateral adrenal glands and bilateral kidneys show no evidence of acute abnormality. There is no hydronephrosis or perinephric stranding. No obstructing renal or ureteral stone is identified. The ab dominal aorta is normal in caliber. The appendix is visualized and appears normal. Pelvis: There are scattered diverticula of the distal descending colon. The uterus and urinary bladde r appear within normal limits. No free pelvic fluid is identified. Bones and Soft Tissues: Evaluation of bony structures demonstrates no evidence of acute bony abnorma lity. Evaluation of soft tissue structures demonstrates no evidence of acute soft tissue abnormality. IMPRESSION: 1. No CT evidence of acute inflammatory or obstructive process within the abdomen or pelvis. Signer Name: Jennifer Bravo MD Signed: 11/30/2019 2:26 AM Workstation Name: [email or web address]
== END 2019-11-30 04:04 | disposition home or self-care (01) ==
LOC: ED 20:54
DX: R10.30 Lower abdominal pain, unspecified (principal); E11.9 Type 2 diabetes mellitus without complications; F31.9 Bipolar disorder, unspecified; J45.909 Unspecified asthma, uncomplicated; Z79.899 Other long term (current) drug therapy; Z98.890 Other specified postprocedural states
CPT/HCPCS: 74176; 81001; 81025; Q0162

== ENCOUNTER 2020-02-20 07:03 | Emergency (ER) | payer MEDICAID ==
--- NOTE | 2020-02-20 07:53 | XRay Report ---
RIGHT ANKLE 3 VIEWS INDICATION / CLINICAL INFORMATION: Right ankle pain. COMPARISON: None available. FINDINGS: BONES/JOINT(S): No acute fracture or subluxation. No significant degenerative changes. SOFT TISSUES: No significant abnormality. ADDITIONAL FINDINGS: None. Signer Name: Luis Miguel Chirinos MD Signed: 02/20/2020 7:49 AM Workstation Name: [id number]
[2020-02-20] MEDS ORDERED: HYDROcodone/ACETAMINOPHEN 10-325MG TAB PO ONE (08:10)
--- NOTE | 2020-02-20 08:42 | XRay Report ---
RIGHT FOOT 3 VIEW(S) INDICATION / CLINICAL INFORMATION: pain s/p fall COMPARISON: None available. FINDINGS: BONES / JOINT(S): No acute fracture or subluxation. No significant arthritis. SOFT TISSUES: No significant abnormality. ADDITIONAL FINDINGS: None. Signer Name: Odin Metz MD Signed: 02/20/2020 8:38 AM Workstation Name: [id number]
--- NOTE | 2020-02-20 09:19 | Emergency Department Report ---
ED Lower Extremity HPI - General Chief Complaint: Extremity Injury, Lower Stated Complaint: RT ANKLE PAIN Time Seen by Provider: 02/20/20 08:03 Source: patient Mode of arrival: Wheelchair Limitations: Physical Limitation - History of Present Illness Initial Comments: This is a 30-year-old female nontoxic, well nourished in appearance, no acute signs of distress presents to the ED with c/o of right ankle pain 1 day. Patient stated that she twisted it while walking. Patient denies any other trauma or injuries. Patient denies any numbness, tingling, fever, chills, nausea, vomiting, chest pain, shortness of breath, headache, stiff neck. Patient denies any joint swelling or joint redness. Patient denies decreased range of motion. Patient stated has decreased gait due to pain. Patient denies any drug allergies. MD Complaint: ankle injury -: days(s) Injury: Ankle: Right Severity: mild Severity scale (0 -10): 8 Improves With: immobilization Worsens With: weight bearing, movement, palpation Context: fall Associated Symptoms: swelling, able to partially bear weight. denies: snap/pop sensation, numbness, tingling, unable to bear weight - Related Data Home Medications Medication Instructions Recorded Confirmed Last Taken Albuterol Sulfate [Ventolin HFA] 2 puff IH Q4H PRN 05/20/18 12/01/18 05/13/18 Linagliptin [Tradjenta] 5 mg PO QDAY 11/27/18 12/01/18 11/30/18 09:00 Previous Rx's Medication Instructions Recorded Last Taken Type Ibuprofen [Motrin] 800 mg PO Q8HR PRN #30 tablet 12/02/18 Unknown Rx metroNIDAZOLE [Flagyl] 500 mg PO Q12HR 7 Days tab 12/02/18 Unknown Rx oxyCODONE /ACETAMINOPHEN [Percocet 1 tab PO Q6HR #14 tab 12/02/18 Unknown Rx 5/325] Hyoscyamine Subl [Levsin Sl 0.125 0.125 mg SL Q6HR PRN #14 tab 11/30/19 Unknown Rx TAB] Naproxen 500 mg PO Q12H PRN #12 tablet 02/20/20 Unknown Rx Allergies Allergy/AdvReac Type Severity Reaction Status Date / Time latex Allergy HIves, Verified 02/20/20 07:14 itching ED Review of Systems ROS: Stated complaint: RT ANKLE PAIN Other details as noted in HPI Comment: All other systems reviewed and negative Constitutional: denies: chills, fever Eyes: denies: eye pain, eye discharge, vision change ENT: denies: ear pain, throat pain Respiratory: denies: cough, shortness of breath, wheezing Cardiovascular: denies: chest pain, palpitations Endocrine: no symptoms reported Gastrointestinal: denies: abdominal pain, nausea, diarrhea Genitourinary: denies: urgency, dysuria, discharge Musculoskeletal: denies: back pain, joint swelling, arthralgia Skin: denies: rash, lesions Neurological: denies: headache, weakness, paresthesias Psychiatric: denies: anxiety, depression Hematological/Lymphatic: denies: easy bleeding, easy bruising ED Past Medical Hx - Past Medical History Hx Hypertension: No Hx Heart Attack/AMI: No Hx Diabetes: Yes Hx Liver Disease: No Hx Renal Disease: No Hx Psychiatric Treatment: Yes (bipolar) Hx Asthma: Yes (Last treated 1 mos ago) - Surgical History Hx Breast Surgery: Yes (Reduction) Additional Surgical History: tonsillectomy/adnoid removal 2005. tubal ligation 2016. breast reduction 01/2017 - Social History Smoking Status: Never Smoker Substance Use Type: Alcohol - Medications Home Medications: Home Medications Medication Instructions Recorded Confirmed Last Taken Type Albuterol Sulfate [Ventolin HFA] 2 puff IH Q4H PRN 05/20/18 12/01/18 05/13/18 History Linagliptin [Tradjenta] 5 mg PO QDAY 11/27/18 12/01/18 11/30/18 09:00 History Ibuprofen [Motrin] 800 mg PO Q8HR PRN #30 tablet 12/02/18 Unknown Rx metroNIDAZOLE [Flagyl] 500 mg PO Q12HR 7 Days tab 12/02/18 Unknown Rx oxyCODONE /ACETAMINOPHEN [Percocet 1 tab PO Q6HR #14 tab 12/02/18 Unknown Rx 5/325] Hyoscyamine Subl [Levsin Sl 0.125 0.125 mg SL Q6HR PRN #14 tab 11/30/19 Unknown Rx TAB] Naproxen 500 mg PO Q12H PRN #12 tablet 02/20/20 Unknown Rx ED Physical Exam - General Limitations: Physical Limitation General appearance: alert, in no apparent distress - Head Head exam: Present: atraumatic, normocephalic - Eye Eye exam: Present: normal appearance - Neck Neck exam: Present: normal inspection, full ROM - Respiratory Respiratory exam: Absent: respiratory distress - Cardiovascular Cardiovascular Exam: Present: regular rate - Extremities Exam Extremities exam: Present: full ROM, tenderness, normal capillary refill. Absent: joint swelling, calf tenderness - Expanded Lower Extremity Exam Right Hip exam: Present: normal inspection, full ROM. Absent: tenderness, swelling Upper Leg exam: Present: normal inspection, full ROM. Absent: tenderness, swelling Knee exam: Present: normal inspection, full ROM. Absent: tenderness, swelling Lower Leg exam: Present: normal inspection, full ROM. Absent: tenderness, swelling, abrasion, laceration, ecchymosis, deformity, crepidus, dislocation, erythema, palpable cord, Prudence's sign Ankle exam: Present: full ROM, tenderness. Absent: swelling, abrasion, laceration, ecchymosis, deformity, crepidus, dislocation, erythema, anterior draw sign Foot/Toe exam: Present: full ROM, tenderness. Absent: swelling, abrasion, laceration, ecchymosis, deformity, crepidus, dislocation, erythema, amputation, puncture wound, foreign body, calcaneal tenderness, tenderness at base of 5th metatarsal, nail avulsion, subungual hematoma Neuro vascular tendon exam: Present: no vascular compromise Gait: Positive: observed and limited by pain 1 - pain here - Back Exam Back exam: Present: normal inspection, full ROM. Absent: tenderness, CVA tenderness (R), CVA tenderness (L), muscle spasm, paraspinal tenderness, vertebral tenderness, rash noted - Neurological Exam Neurological exam: Present: alert, oriented X3 - Psychiatric Psychiatric exam: Present: normal affect, normal mood - Skin Skin exam: Present: warm, dry, intact, normal color. Absent: rash ED Course Vital Signs 02/20/20 02/20/20 07:15 07:24 Temperature 98.5 F Pulse Rate 97 H 103 H Respiratory 16 Rate Blood Pressure 108/70 O2 Sat by Pulse 96 95 Oximetry Vital Signs 02/20/20 02/20/20 07:15 07:24 Temperature 98.5 F Pulse Rate 97 H 103 H Respiratory 16 Rate Blood Pressure 108/70 O2 Sat by Pulse 96 95 Oximetry - Reevaluation(s) Reevaluation #1: 02/20/20 09:21 Patient is speaking in full sentences with no signs of distress noted. ED Lower Extremity MDM - Radiology Data Date of Service: 02/20/20 Procedure(s): XR foot 3+V RT Accession Number(s): [id number] cc: ANNIE GAXIOLA NP Fluoro Time In Minutes: RIGHT FOOT 3 VIEW(S) INDICATION / CLINICAL INFORMATION: pain s/p fall COMPARISON: None available. FINDINGS: BONES / JOINT(S): No acute fracture or subluxation. No significant arthritis. SOFT TISSUES: No significant abnormality. ADDITIONAL FINDINGS: None. Signer Name: Odin King MD Signed: 02/20/2020 8:38 AM Workstation Name: [id number] Transcribed By: CH Dictated By: ODIN KING Electronically Authenticated By: ODIN KING Signed Date/Time: 02/20/20837 DD/ 6 TD/TT: Referring Physician: CATALINA MINER Patient Name: DILMA RODRIGUEZ Date of : 1990 Sex: Female Report Date: 2020-02-20 Report Status: Finalized [address] [address] XRay Report Signed Patient: DILMA RODRIGUEZ MR#: [id number] : 1990 Acct:[id number] Age/Sex: 30 / F ADM Date: 02/20/20 Loc: ED Attending Dr: Ordering Physician: CATALINA MINER MD Date of Service: 02/20/20 Procedure(s): XR ankle 3+V RT Accession Number(s): [id number] cc: CATALINA MINER MD Fluoro Time In Minutes: RIGHT ANKLE 3 VIEWS INDICATION / CLINICAL INFORMATION: Right ankle pain. COMPARISON: None available. FINDINGS: BONES/JOINT(S): No acute fracture or subluxation. No significant degenerative changes. SOFT TISSUES: No significant abnormality. ADDITIONAL FINDINGS: None. Signer Name: Luis Miguel Chirinos MD Signed: 02/20/2020 7:49 AM Workstation Name: [email or web address] Transcribed By: AMANDA Dictated By: Luis Miguel Chirinos MD Electronically Authenticated By: Luis Miguel Chirinos MD Signed Date/Time: 02/20/20748 DD/ 8 TD/TT: - Medical Decision Making This is a 30-year-old female that presents with right ankle/foot strain. Patient is stable and was examined by me. I referred patient to an orthopedic doctor for further evaluation for possible MRI. X-ray has been obtained and dictated by the radiologist. Patient is notified of the x-ray report with noted by the patient. Patient does have normal gait with no tenderness and no joint swelling. No ecchymosis. no joint redness or swelling. Not warm to touch. No signs of cellulites present. Patient received a ankle stirrup and crutches and was educated by RN how to use crutches. Patient was instructed to RICE therapy. Patient received Morgan for pain which stated pain is under control. Patient stated family member will drive patient home after discharge due to the possible drowsiness of Morgan.. Patient is discharged with naproxen. At time of discharge, the patient does not seem toxic or ill in appearance. No acute signs of distress noted. Patient agrees to discharge treatment plan of care. No further questions noted by the patient. Critical care attestation.: If time is entered above; I have spent that time in minutes in the direct care of this critically ill patient, excluding procedure time. ED Disposition Clinical Impression: Right ankle sprain Qualifiers: Encounter type: initial encounter Involved ligament of ankle: unspecified ligament Qualified Code(s): S93.401A - Sprain of unspecified ligament of right ankle, initial encounter Right foot strain Qualifiers: Encounter type: initial encounter Qualified Code(s): S96.911A - Strain of unspecified muscle and tendon at ankle and foot level, right foot, initial encounter Disposition: TO HOME OR SELFCARE Is pt being admited?: No Does the pt Need Aspirin: No Condition: Stable Instructions: RICE Therapy for Routine Care of Injuries, [id number], Ankle Sprain, Foot Sprain Additional Instructions: Follow-up with a orthopedic doctor in 3-5 days or if symptoms worsen and continue return to emergency room as soon as possible. No physical activity that extremity until cleared by orthopedic doctor Prescriptions: Naproxen 500 mg PO Q12H PRN #12 tablet PRN Reason: Pain , Severe (7-10) Referrals: PRIMARY CAREMD [Primary Care Provider] - 3-5 Days IAN NELSON MD [Staff Physician] - 3-5 Days Forms: Work/School Release Form(ED) Time of Disposition: 09:24
[2020-02-20 09:20] VITALS: BP 108/70
== END 2020-02-20 11:13 | disposition home or self-care (01) ==
LOC: ED 07:03
DX: S93.401A Sprain of unspecified ligament of right ankle, initial encounter (principal); E11.9 Type 2 diabetes mellitus without complications; F31.9 Bipolar disorder, unspecified; Z98.890 Other specified postprocedural states; Z98.51 Tubal ligation status; Z79.1 Long term (current) use of non-steroidal anti-inflammatories (NSAID); Z79.899 Other long term (current) drug therapy; Z91.040 Latex allergy status; X50.1XXA Overexertion from prolonged static or awkward postures, initial encounter; Y93.89 Activity, other specified; Y92.89 Other specified places as the place of occurrence of the external cause; Y99.8 Other external cause status